=== PATIENT | male | born 1935 | race Caucasian/White ===

== ENCOUNTER → 2019-11-01 | Outpatient (CLI) | payer MEDICARE ==
[~2019-11-01] MED LIST: AEC81 PO; ALFU10TA9 PO; ALLO300T2 PO; DUTA.5 PO; FENO130C13 PO; FISH1CAP49 PO; HERB LAX PO; I-CAPS PO; LISI10TA7 PO; LUBRICANT EYE OU; MELA3TAB66 PO; MULT1TAB70 PO; SIMV40TA59 PO; TURMER PO
== END | disposition home or self-care (01) ==
LOC: SHCH 12:51
PROVIDERS: ATTEND Internal Medicine Cardiovascular Disease
DX: I87.2 Venous insufficiency (chronic) (peripheral) (principal); I73.9 Peripheral vascular disease, unspecified
CPT/HCPCS: 93306; 93925; 93970

== ENCOUNTER → 2019-12-04 | Outpatient (CLI) | payer MEDICARE ==
[~2019-12-04] MED LIST changes: +IOHEXOL 350 MG/ML 100ML INFUS..BTL IV ONE; +IOHEXOL-350 50ML VIAL IV ONE; +MELA3TAB41 PO; -MELA3TAB66 PO
== END | disposition home or self-care (01) ==
LOC: RAH 08:10
PROVIDERS: ATTEND Internal Medicine Cardiovascular Disease
DX: K80.20 Calculus of gallbladder without cholecystitis without obstruction (principal); K57.30 Diverticulosis of large intestine without perforation or abscess without bleeding; K76.89 Other specified diseases of liver; I70.1 Atherosclerosis of renal artery; J90 Pleural effusion, not elsewhere classified; I70.201 Unspecified atherosclerosis of native arteries of extremities, right leg
CPT/HCPCS: 75635; Q9967 ×2

== ENCOUNTER → 2020-08-04 | Outpatient (CLI) | payer MEDICARE ==
[~2020-08-04] MED LIST changes: -FENO130C13 PO; +FENO130C14 PO; -IOHEXOL 350 MG/ML 100ML INFUS..BTL IV ONE; +MULT-660 PO; -MULT1TAB70 PO
== END | disposition home or self-care (01) ==
LOC: RAH 10:44
PROVIDERS: ATTEND Internal Medicine Cardiovascular Disease
DX: J90 Pleural effusion, not elsewhere classified (principal); R91.1 Solitary pulmonary nodule; I51.7 Cardiomegaly; K80.20 Calculus of gallbladder without cholecystitis without obstruction
CPT/HCPCS: 71270; Q9967

== ENCOUNTER → 2020-09-23 | Outpatient (CLI) | payer MEDICARE ==
[~2020-09-23] MED LIST changes: -IOHEXOL-350 50ML VIAL IV ONE
--- NOTE | 2020-09-23 11:00 | NUR ---
MBSS COMPLETED. +NON-TRANSIENT PENETRATION. RECOMMEND REGULAR TEXTURE, THIN LIQUIDS; PILLS WHOLE WITH FOOD. RECOMMENDATIONS: 1. NO MIXED TEXTURES 2. NO STRAWS RESIDENT CAREGIVER PROVIDED Pt AND CAREGIVER WITH RESULTS AND RECOMMENDATIONS VIA VERBAL AND WRITTEN MODALITY. ALL QUESTIONS ANSWERED AT THIS TIME. RESIDENT CAREGIVER PROVIDED RISKS AND CONSEQUENCES OF ASPIRATION. SL PROVIDED Pt/CAREGIVER WITH A LIST OF FOODS TO AVOID. Addendum: 09/23/20 at 1336 by RADHA QUIÑONES [facility] Amended: Links added.
== END | disposition home or self-care (01) ==
LOC: RAH 10:56
PROVIDERS: ATTEND Internal Medicine
DX: T17.920A Food in respiratory tract, part unspecified causing asphyxiation, initial encounter (principal); R13.13 Dysphagia, pharyngeal phase; X58.XXXA Exposure to other specified factors, initial encounter; Y93.89 Activity, other specified; Y92.89 Other specified places as the place of occurrence of the external cause; Y99.8 Other external cause status
CPT/HCPCS: 74230; 92611

== ENCOUNTER → 2021-05-26 | Outpatient (CLI) | payer MEDICARE ==
[~2021-05-26] MED LIST changes: +LISI10TA24 PO; -LISI10TA7 PO
== END | disposition home or self-care (01) ==
LOC: RAH 14:14
PROVIDERS: ATTEND Psychiatry & Neurology Neurology
DX: F02.81 Dementia in other diseases classified elsewhere, unspecified severity, with behavioral disturbance (principal); G31.89 Other specified degenerative diseases of nervous system
CPT/HCPCS: 70450

== ENCOUNTER 2022-01-23 10:12 | Emergency (ER) | payer MEDICARE ==
[~2022-01-23] VITALS: Ht 172.7 cm; Wt 81.6 kg
[2022-01-23 10:43] LABS: BASOPHILS % (AUTO) 0.4 % (0.0-5.0); EOSINOPHILS % (AUTO) 2.7 % (0.0-8.0); HEMATOCRIT 35.4 % (42-54); LYMPHOCYTES % (AUTO) 13.4 % (21.0-51.0); MEAN CORPUSCULAR HEMOGLOBIN 30.1 pg (27.0-33.0); MEAN CORPUSCULAR HGB CONC 33.3 g/dL (32.0-36.0); MEAN CORPUSCULAR VOLUME 90.3 fL (79-99); MONOCYTES % (AUTO) 6.4 % (3.0-13.0); NEUTROPHILS % (AUTO) 76.9 % (40.0-77.0); PLATELET COUNT (AUTO) 239 K/uL (130-400); RED BLOOD CELL COUNT(AUTO) 3.92 MIL/uL (4.50-6.20); RED CELL DISTRIBUTION WIDTH 14.3 % (11.0-15.5); WHITE BLOOD COUNT (AUTO) 8.1 K/uL (4.8-10.8)
[2022-01-23 12:45] LABS: ALBUMIN 3.1 g/dL (3.5-5.0); BILIRUBIN,TOTAL 0.4 mg/dL (0.2-1.0); POTASSIUM 3.6 mmol/L (3.5-5.1); TOTAL PROTEIN, SERUM 5.8 g/dL (6.0-8.3)
[2022-01-23 12:52] LABS: CREATININE 0.8 mg/dL (0.5-1.5)
[2022-01-23] MEDS ORDERED: ACETAMINOPHEN 325 MG TAB ONE (14:51)
[2022-01-23] MEDS ORDERED: ACETAMINOPHEN 325 MG TAB PO ONE (15:00)
[2022-01-23] MEDS ORDERED: IPRATROPIUM/ALBUTEROL SULFATE 3 ML SOLUTION IH ONE (15:00)
[2022-01-23 16:22] VITALS: BP 145/76
== END 2022-01-23 16:34 | disposition home or self-care (01) ==
LOC: EDH 10:12
DX: S22.079A Unspecified fracture of T9-T10 vertebra, initial encounter for closed fracture (principal); E11.9 Type 2 diabetes mellitus without complications; I10 Essential (primary) hypertension; Z79.899 Other long term (current) drug therapy; Z79.82 Long term (current) use of aspirin; W18.39XA Other fall on same level, initial encounter; Y93.01 Activity, walking, marching and hiking; Y92.89 Other specified places as the place of occurrence of the external cause; Y99.8 Other external cause status
CPT/HCPCS: 36415; 70450; 71250; 80053; 83880; 85025; 93005; 94640

== ENCOUNTER → 2022-02-26 | Outpatient (CLI) | payer MEDICARE | END | disposition home or self-care (01) | LOC: OIH 11:01 | PROVIDERS: ATTEND Internal Medicine Cardiovascular Disease | DX: I08.3 Combined rheumatic disorders of mitral, aortic and tricuspid valves (principal) | CPT/HCPCS: 93306 ==